=== PATIENT | male | born 1945 | race Caucasian/White ===

== ENCOUNTER 2020-09-06 07:05 | Day surgery (SDC) | payer BC, MEDICARE ==
[~2020-09-06] VITALS: Ht 177.8 cm; Wt 121.7 kg
[~2020-09-06 07:05] MED LIST: ASPI81EC PO; Coq-1030 MG PO; FISH1000 PO; HYDACE5 PO; HYDCHL25 PO; IBUP600 PO; MAGNESIUM OXID500 MG PO; MULTIVITAMINS1 EAC3 PO; VITAMINS
[2020-09-06] MEDS ORDERED: ELIQUIS2.5 MG PO (07:40)
[2020-09-06] MEDS ORDERED: LOSA25 (07:40)
[2020-09-06] MEDS ORDERED: POTA10T PO (07:41)
--- NOTE | 2020-09-06 07:44 | NUR ---
09/06/20 0744 Evelio Riley CALL LIGHT WITHIN REACH
== END 2020-09-06 09:15 | disposition home or self-care (01) ==
LOC: ORSCSDS 07:05
PROVIDERS: Ophthalmology
PROC: 08RK3JZ Replacement of Left Lens with Synthetic Substitute, Percutaneous Approach (ICD-10-PCS; principal; 2020-09-06 08:30)
DX: H25.12 Age-related nuclear cataract, left eye (principal); Z86.73 Personal history of transient ischemic attack (TIA), and cerebral infarction without residual deficits; I48.91 Unspecified atrial fibrillation; I10 Essential (primary) hypertension; E66.9 Obesity, unspecified; Z68.38 Body mass index [BMI] 38.0-38.9, adult; Z79.01 Long term (current) use of anticoagulants; Z79.899 Other long term (current) drug therapy; G47.33 Obstructive sleep apnea (adult) (pediatric)
CPT/HCPCS: J2001; J3010; J3301; J7040; V2632